=== PATIENT | male | born 1985 | race African-American/Black ===

== ENCOUNTER 2020-08-16 09:15 | Emergency (ER) | payer OTHER ==
[~2020-08-16] VITALS: Ht 167.6 cm; Wt 79.8 kg
--- NOTE | 2020-08-16 09:17 | NUR ---
Dr Winn at the bedside for MSE.
[2020-08-16] MEDS ORDERED: DOXY150T3 PO (09:21)
[2020-08-16] MEDS ORDERED: LIDOCAINE HCL 1% 20 ML VIAL ONE (09:28)
[2020-08-16] MEDS ORDERED: CEFTRIAXONE 500 MG VIAL ONE (09:29)
[2020-08-16] MEDS ORDERED: DOXYCYCLINE HYCLATE 100 MG TABLET ONE (09:29)
[2020-08-16 09:30] VITALS: BP 118/72
[2020-08-16] MEDS ORDERED: CEFTRIAXONE 500 MG VIAL IM ONE (09:30)
[2020-08-16] MEDS ORDERED: DOXYCYCLINE HYCLATE 100 MG TABLET PO ONE (09:30)
--- NOTE | 2020-08-16 09:30 | NUR ---
Patient discharged to home in stable condition. Written and verbal after care instructions given. Patient verbalizes understanding of instructions. Stressed follow up or return to ER for worsening s/s.
== END 2020-08-16 09:31 | disposition home or self-care (01) ==
LOC: ER 09:15
DX: N34.2 Other urethritis (principal)
CPT/HCPCS: 96372; 99283; J0696; J3490; A4663